=== PATIENT | male | born 1980 | race Caucasian/White ===

== ENCOUNTER 2017-01-13 10:07 | Emergency (ER) | payer MEDICARE, MEDICAID ==
[~2017-01-13] VITALS: Ht 190.5 cm; Wt 80.0 kg
[~2017-01-13 10:07] MED LIST: ALBUAER3 INH; ARIP1TAB12 PO; LURA40 PO; PARO20TA2 PO; QUET1TAB9 PO; TRAZ50TA12 PO
[2017-01-13 10:16] VITALS: BP 128/86; PULSE 85; RESP 15; TEMP 98.6; O2SAT 98
[2017-01-13 10:38] LABS: AUTOMATED NEUTROPHIL # 4.5 TH/MM3 (1.8-7.7); BASOPHIL % 0.4 % (0.0-2.0); EOSINOPHIL # 0.2 TH/MM3 (0-0.4); EOSINOPHIL % 3.3 % (0.0-4.0); HEMATOCRIT 45.1 % (39.0-51.0); HEMO FLAGS DIFF FINAL; LYMPH % 18.5 % (9.0-44.0); LYMPHOCYTE # 1.2 TH/MM3 (1.0-4.8); MEAN CELL VOLUME 88.1 FL (80.0-100.0); MONO % 7.2 % (0.0-8.0); NEUT % 70.6 % (16.0-70.0); PLATELET COUNT 245 TH/MM3 (150-450); RED BLOOD COUNT 5.12 MIL/MM3 (4.50-5.90); RED CELL DISTRIBUTION WIDTH 12.6 % (11.6-17.2); WHITE BLOOD COUNT 6.4 TH/MM3 (4.0-11.0)
[2017-01-13] MEDS ORDERED: LORazepam 1 MG TAB PO ONE (10:45)
[2017-01-13] MEDS ORDERED: LIDOCAINE VISCOUS 2% SOLN 15 ML UDC SWISH-SWAL ONE (10:45)
[2017-01-13] MEDS ORDERED: ALUMINUM/MAGNESIUM/SIMETH 30 ML CUP PO ONE (10:45)
[2017-01-13 10:54] LABS: ALT (GPT) 26 U/L (12-78); ANION GAP 8 MEQ/L (5-15); AST (GOT) 11 U/L (15-37); BICARBONATE 28.2 MEQ/L (21.0-32.0); BLOOD UREA NITROGEN 14 MG/DL (7-18); CHLORIDE 106 MEQ/L (98-107); GLOMERULAR FILTRATION RATE 77 ML/MIN (>89); SODIUM (NA) 142 MEQ/L (136-145)
[2017-01-13 10:56] LABS: ALKALINE PHOSPHATASE 69 U/L (45-117); TOTAL BILIRUBIN ADULT 1.1 MG/DL (0.2-1.0)
--- NOTE | 2017-01-13 11:54 | PD ---
HPI Chief Complaint: Psychiatric Symptoms Time Seen by Provider: 10:12 Travel History International Travel<30 days: No Contact w/Intl Traveler<30days: No Traveled to known affect area: No History of Present Illness HPI This is a 36-year-old male who has a history of schizoaffective disorder who presents to the emergency department with 1 week of sleeplessness, feeling very anxious and feeling "manic". He says his psychiatrist changed his sleeping medication on Monday and ever since then he's been having increasing trouble resting at night. He tried to take his old sleeping pill yesterday but he still didn't fall asleep. He denies any thoughts of hurting himself or others but he was worried his mental illness with adequate control and he wanted to get evaluated before that happened. PFSH Past Medical History Arthritis: No Asthma: Yes Depression: Yes Heart Rhythm Problems: No Cancer: No Cardiovascular Problems: No High Cholesterol: No Chest Pain: No Congestive Heart Failure: No COPD: Yes Cerebrovascular Accident: No Diabetes: No Diminished Hearing: No Endocrine: No GERD: No Genitourinary: No Headaches: No Hiatal Hernia: No Immune Disorder: No Kidney Stones: No Musculoskeletal: No Neurologic: No Psychiatric: Yes (DEPRESSION, SHIZOAFFECTIVE DISORDER) Reproductive: No Respiratory: Yes Migraines: No Renal Failure: No Schizophrenia: Yes (SCHIZOAFFECTIVE DISORDER) Seizures: No Sleep Apnea: No Ulcer: No Tetanus Vaccination: Unknown Past Surgical History Surgical History: No Previous Surgery Social History Alcohol Use: No Tobacco Use: No Substance Use: No (DENIES) Allergies-Medications (Allergen,Severity, Reaction): Coded Allergies: No Known Allergies (Unverified , 07/11/16) Reported Meds & Prescriptions Reported Meds & Active Scripts Active Latuda (Lurasidone) 40 Mg Tab 40 Mg PO DAILY Trazodone (Trazodone HCl) 50 Mg Tab 50 Mg PO HS PRN Quetiapine (Quetiapine Fumarate) 200 Mg Tab 200 Mg PO HS Paroxetine (Paroxetine HCl) 20 Mg Tab 20 Mg PO DAILY 14 Days Aripiprazole 10 Mg Tab 10 Mg PO DAILY 14 Days Reported Proair Hfa 8.5 GM Inh (Albuterol Sulfate) 90 Mcg/Act Aer 1 Puff INH Q4H PRN 108 mcg/actuation Review of Systems Except as stated in HPI: all other systems reviewed are Neg Physical Exam Narrative GENERAL:Well appearing, no acute distress SKIN: Focused skin assessment warm and dry. HEAD: Atraumatic. Normocephalic. EYES: Pupils equal and round. No injection or drainage. ENT: Moist mucous membranes NECK: Trachea midline. CARDIOVASCULAR: Regular rate and rhythm. No murmur appreciated. RESPIRATORY: Clear to auscultation. Breath sounds equal bilaterally. GASTROINTESTINAL: Abdomen soft, non-tender, nondistended. MUSCULOSKELETAL: No obvious deformities. NEUROLOGICAL: Awake and alert. No obvious cranial nerve deficits. Moving all extremities. PSYCHIATRIC: Slightly anxious-appearing, insight and judgment are normal, no suicidal or homicidal ideation Data Data Last Documented VS Vital Signs Date Time Temp Pulse Resp B/P Pulse Ox O2 Delivery O2 Flow Rate FiO2 01/13/17 10:16 98.6 85 15 128/86 98 Orders Complete Blood Count With Diff (01/13/17 10:22) Comprehensive Metabolic Panel (01/13/17 10:22) Alcohol (Ethanol) (01/13/17 10:22) Drug Screen, Random Urine (01/13/17 10:22) Lorazepam (Ativan) (01/13/17 10:45) Al-Mag Hy-Si 40-40-4 Mg/Ml Liq (Mag-Al P (01/13/17 10:45) Lidocaine 2% Viscous (Xylocaine 2% Visco (01/13/17 10:45) Psych Screen (01/13/17 11:50) Labs Laboratory Tests Test 01/13/17 10:30 White Blood Count 6.4 TH/MM3 Red Blood Count 5.12 MIL/MM3 Hemoglobin 15.4 GM/DL Hematocrit 45.1 % Mean Corpuscular Volume 88.1 FL Mean Corpuscular Hemoglobin 30.0 PG Mean Corpuscular Hemoglobin 34.0 % Concent Red Cell Distribution Width 12.6 % Platelet Count 245 TH/MM3 Mean Platelet Volume 8.3 FL Neutrophils (%) (Auto) 70.6 % Lymphocytes (%) (Auto) 18.5 % Monocytes (%) (Auto) 7.2 % Eosinophils (%) (Auto) 3.3 % Basophils (%) (Auto) 0.4 % Neutrophils # (Auto) 4.5 TH/MM3 Lymphocytes # (Auto) 1.2 TH/MM3 Monocytes # (Auto) 0.5 TH/MM3 Eosinophils # (Auto) 0.2 TH/MM3 Basophils # (Auto) 0.0 TH/MM3 CBC Comment DIFF FINAL Differential Comment Sodium Level 142 MEQ/L Potassium Level 4.0 MEQ/L Chloride Level 106 MEQ/L Carbon Dioxide Level 28.2 MEQ/L Anion Gap 8 MEQ/L Blood Urea Nitrogen 14 MG/DL Creatinine 1.08 MG/DL Estimat Glomerular Filtration 77 ML/MIN Rate Random Glucose 108 MG/DL Calcium Level 9.6 MG/DL Total Bilirubin 1.1 MG/DL Aspartate Amino Transf 11 U/L (AST/SGOT) Alanine Aminotransferase 26 U/L (ALT/SGPT) Alkaline Phosphatase 69 U/L Total Protein 8.1 GM/DL Albumin 4.5 GM/DL Ethyl Alcohol Level LESS THAN 3 MG/DL MDM Medical Decision Making Medical Screen Exam Complete: Yes Emergency Medical Condition: Yes Interpretation(s) Afebrile, no tachycardia, normotensive No leukocytosis Electrolytes are reassuring Alcohol negative Differential Diagnosis Schizoaffective disorder, schizophrenia, bipolar disorder, jonnie, medication side effect Narrative Course This is a 36-year-old male who presents to the emergency department with a history of schizoaffective disorder reporting increasing sleeplessness and anxiety. He is very well composed, clear, with preserved insight and judgment. He was brought in under a [place] act by police but nothing on the [place] act articulate any reason that the patient would be arm to himself or others. Patient does not express any suicidal or homicidal ideation. I don't think the [place] act is appropriate. He is here because he wants to be assessed by psychiatrist. I lifted the [place] act and the patient will be evaluated voluntarily by psychiatry. Rach Levin MD Jan 13, 2017 11:54
[2017-01-13 12:09] LABS: AMPHETAMINE, URINE NEG (NEG); BARBITURATES, URINE NEG (NEG); COCAINE, URINE NEG (NEG)
[2017-01-13] MEDS ORDERED: VALA500T PO (12:48)
[2017-01-13] MEDS ORDERED: MAGN400T24 (12:48)
--- NOTE | 2017-01-13 13:13 | PD ---
History of Present Illness Chief Complaint: Psychiatric Symptoms Time Seen by Provider: 12:55 Travel History International Travel<30 Days: No Contact w/Intl Traveler<30days: No Known affected area: No Legal Status Legal Status: Voluntary History of Present Illness: This is a 36-year-old male with a reported history of schizoaffective disorder, probably bipolar type, appearing voluntarily due to lack of sleep and manic symptoms. Patient is treated by Dr. Bhatia and was recently switched from Restoril . To Ambien. He states that he has not slept for 5 days. He is experiencing some hallucinations and paranoia but cannot tell if this is the result of the change of medicine, his lack of sleep, or his underlying schizoaffective disorder. Patient is afraid of his lack of sleep and that it will drive him into psychosis. This physician discussed with him the difficulty of changing these medicines too quickly. This physician recommends the patient take Klonopin which will assist with both sleep and jonnie. The patient is denying any suicidal or homicidal ideation, plan or intent. However , he is experiencing some paranoia and hallucinations. Therefore, the patient needs to be managed more closely. PFSH Past Medical History Arthritis: No Asthma: Yes Depression: Yes Heart Rhythm Problems: No Cancer: No Cardiovascular Problems: No High Cholesterol: No Chest Pain: No Congestive Heart Failure: No COPD: Yes Cerebrovascular Accident: No Diabetes: No Diminished Hearing: No Endocrine: No GERD: No Genitourinary: No Headaches: No Hiatal Hernia: No Immune Disorder: No Kidney Stones: No Musculoskeletal: No Neurologic: No Psychiatric: Yes (DEPRESSION, SHIZOAFFECTIVE DISORDER) Reproductive: No Respiratory: Yes Migraines: No Renal Failure: No Schizophrenia: Yes (SCHIZOAFFECTIVE DISORDER) Seizures: No Sleep Apnea: No Ulcer: No Tetanus Vaccination: Unknown Past Surgical History Surgical History: No Previous Surgery Psychiatric History Psychiatric History Hx Psychiatric Treatment: INPATIENT IN [place] IN 2004 AND 2005 FOR MULTIPLE SUICIDE ATTEMPTS; INPATIENT AT [facility] FOR 8 DAYS-D/C'D ON 07/06/16. This physician reviewed the patient's current behavior and history with his nurse. Patient is not suicidal at this time but feels if he does not get sleep and rest, his psychosis will get worse. History of Inpatient Treatment: Yes Guns or firearms in home: No Social History Hx Alcohol Use: No Hx Tobacco Use: No Hx Substance Use: No (DENIES) Hx of Substance Use Treatment: No Allergies-Medications (Allergen,Severity, Reaction): Coded Allergies: No Known Allergies (Unverified , 07/11/16) Reported Meds & Prescriptions Reported Meds & Active Scripts Active Latuda (Lurasidone) 40 Mg Tab 40 Mg PO DAILY Quetiapine (Quetiapine Fumarate) 200 Mg Tab 200 Mg PO HS Reported Magnesium (Magnesium Oxide) 400 Mg Tablet Valacyclovir (Valacyclovir HCl) 500 Mg Tab 500 Mg PO DAILY Proair Hfa 8.5 GM Inh (Albuterol Sulfate) 90 Mcg/Act Aer 1 Puff INH Q4H PRN 108 mcg/actuation Review of Systems Except as stated in HPI: all other systems reviewed are Neg Exam Alert: Yes [place]: Person, Place, Date, Situation Mood: Anxious, Calm Affect: Appropriate Speech: Clear, Logical Eye Contact: Normal Memory Intact: Immediate, Recent, Remote Hallucinations: Auditory, Visual Delusions: Yes Delusion Type: Paranoid Insight/Judgement Adequate at this time MDM Medical Decision Making Medical Record Reviewed: Yes Assessment/Plan Although the patient is experiencing both auditory and visual hallucinations with resultant paranoia, his insight is adequate to know that these are either a side effect of changing medicines or the lack of sleep. He is trying to keep his schizoaffective disorder history under control and therefore would like to change his sedative hypnotic type medicine. His cognition is intact and he is able to give informed consent for the change to Klonopin. Klonopin will remove some of the benzodiazepine withdrawal that he is experiencing, help him with sleep and reduce manic symptoms. Patient was told to return to his psychiatrist , Dr. Garcia, for follow up. However if his underlying schizoaffective disorder were to get worse, he is to come back to the emergency department for likely admission. Orders Complete Blood Count With Diff (01/13/17 10:22) Comprehensive Metabolic Panel (01/13/17 10:22) Alcohol (Ethanol) (01/13/17 10:22) Drug Screen, Random Urine (01/13/17 10:22) Lorazepam (Ativan) (01/13/17 10:45) Al-Mag Hy-Si 40-40-4 Mg/Ml Liq (Mag-Al P (01/13/17 10:45) Lidocaine 2% Viscous (Xylocaine 2% Visco (01/13/17 10:45) Psych Screen (01/13/17 11:50) Diet Regular Basic (01/13/17 Lunch) Results Vital Signs Date Time Temp Pulse Resp B/P Pulse Ox O2 Delivery O2 Flow Rate FiO2 01/13/17 10:16 98.6 85 15 128/86 98 Laboratory Tests Test 01/13/17 01/13/17 10:30 11:50 White Blood Count 6.4 Red Blood Count 5.12 Hemoglobin 15.4 Hematocrit 45.1 Mean Corpuscular Volume 88.1 Mean Corpuscular Hemoglobin 30.0 Mean Corpuscular Hemoglobin 34.0 Concent Red Cell Distribution Width 12.6 Platelet Count 245 Mean Platelet Volume 8.3 Neutrophils (%) (Auto) 70.6 Lymphocytes (%) (Auto) 18.5 Monocytes (%) (Auto) 7.2 Eosinophils (%) (Auto) 3.3 Basophils (%) (Auto) 0.4 Neutrophils # (Auto) 4.5 Lymphocytes # (Auto) 1.2 Monocytes # (Auto) 0.5 Eosinophils # (Auto) 0.2 Basophils # (Auto) 0.0 CBC Comment DIFF FINAL Differential Comment Sodium Level 142 Potassium Level 4.0 Chloride Level 106 Carbon Dioxide Level 28.2 Anion Gap 8 Blood Urea Nitrogen 14 Creatinine 1.08 Estimat Glomerular Filtration 77 Rate Random Glucose 108 Calcium Level 9.6 Total Bilirubin 1.1 Aspartate Amino Transf 11 (AST/SGOT) Alanine Aminotransferase 26 (ALT/SGPT) Alkaline Phosphatase 69 Total Protein 8.1 Albumin 4.5 Ethyl Alcohol Level LESS THAN 3 Urine Opiates Screen NEG Urine Barbiturates Screen NEG Urine Amphetamines Screen NEG Urine Benzodiazepines Screen NEG Urine Cocaine Screen NEG Urine Cannabinoids Screen NEG Diagnosis Primary Impression: Schizoaffective disorder, bipolar type Additional Impression: Benzodiazepine dependence Problem Qualifiers Truman Michel MD Jan 13, 2017 13:13
[2017-01-13] MEDS ORDERED: CLON1 PO (13:19)
== END 2017-01-13 14:05 | disposition home or self-care (01) ==
LOC: NEPD 10:07
DX: F25.0 Schizoaffective disorder, bipolar type (principal); F13.20 Sedative, hypnotic or anxiolytic dependence, uncomplicated; Z86.59 Personal history of other mental and behavioral disorders; Z87.09 Personal history of other diseases of the respiratory system
CPT/HCPCS: 80053; 80307; 84443; 85025; 99284

== ENCOUNTER → 2017-01-27 | Outpatient (CLI) | payer MEDICARE, MEDICAID ==
[~2017-01-27] MED LIST changes: +ARIP1TAB11 PO; -ARIP1TAB12 PO; +CLON1 PO; +MAGN400T24 PO; -PARO20TA2 PO; +PROP10TA6 PO; -TRAZ50TA12 PO; +VALA500T PO; +ZOLO25TA PO
[2017-01-27 19:09] LABS: BLOOD, URINE NEG (NEG); GLUCOSE,URINE NEG (NEG); KETONE, URINE NEG (NEG); NITRITE,URINE NEG (NEG); PH, URINE 6.5 (5.0-8.5); URINE COLOR YELLOW (YELLW/STRAW)
[2017-01-27 19:19] LABS: AUTOMATED NEUTROPHIL # 3.6 TH/MM3 (1.8-7.7); BASOPHIL % 0.7 % (0.0-2.0); EOSINOPHIL # 0.5 TH/MM3 (0-0.4); EOSINOPHIL % 8.6 % (0.0-4.0); HEMATOCRIT 42.2 % (39.0-51.0); HEMO FLAGS DIFF FINAL; LYMPH % 22.9 % (9.0-44.0); LYMPHOCYTE # 1.4 TH/MM3 (1.0-4.8); MEAN CELL VOLUME 88.3 FL (80.0-100.0); MEAN CORPUSCULAR HEMOGLOBIN 30.4 PG (27.0-34.0); MEAN CORPUSCULAR HGB CONC 34.4 % (32.0-36.0); NEUT % 59.8 % (16.0-70.0); PLATELET COUNT 219 TH/MM3 (150-450); RED BLOOD COUNT 4.78 MIL/MM3 (4.50-5.90); RED CELL DISTRIBUTION WIDTH 12.7 % (11.6-17.2); WHITE BLOOD COUNT 6.1 TH/MM3 (4.0-11.0)
[2017-01-27 20:01] LABS: ANION GAP 7 MEQ/L (5-15); AST (GOT) 11 U/L (15-37); BICARBONATE 27.8 MEQ/L (21.0-32.0); BLOOD UREA NITROGEN 15 MG/DL (7-18); CHLORIDE 101 MEQ/L (98-107); GLOMERULAR FILTRATION RATE 89 ML/MIN (>89); POTASSIUM 4.3 MEQ/L (3.5-5.1); SODIUM (NA) 136 MEQ/L (136-145)
[2017-01-27 20:02] LABS: ALT (GPT) 23 U/L (12-78)
[2017-01-27 20:10] LABS: ALKALINE PHOSPHATASE 59 U/L (45-117); FREE T4 1.12 NG/DL (0.76-1.46); HDL CHOLESTEROL 48.7 MG/DL (40.0-60.0); LDL CHOLESTEROL 83 MG/DL (0-99); TOTAL BILIRUBIN ADULT 0.9 MG/DL (0.2-1.0)
== END ==
LOC: HLAB 18:06
PROVIDERS: ATTEND Family Medicine
DX: J02.9 Acute pharyngitis, unspecified (principal); B00.9 Herpesviral infection, unspecified; J20.9 Acute bronchitis, unspecified; F41.9 Anxiety disorder, unspecified; F31.9 Bipolar disorder, unspecified; E55.9 Vitamin D deficiency, unspecified; R82.90 Unspecified abnormal findings in urine
CPT/HCPCS: 80053; 80061; 81001; 82306; 83735; 84439; 84443; 85025; 87086

== ENCOUNTER 2017-02-10 11:51 | Inpatient (IN) | payer OTHER, MEDICAID, MEDICARE ==
[~2017-02-10] VITALS: Ht 190.5 cm; Wt 81.6 kg
[~2017-02-10 11:51] MED LIST changes: -ARIP1TAB11 PO; -PROP10TA6 PO; -ZOLO25TA PO
[2017-02-10 11:52] VITALS: BP 134/78; PULSE 86; RESP 15; TEMP 98.1; O2SAT 99
--- NOTE | 2017-02-10 12:06 | PD ---
HPI . Anxiety, auditory hallucinations and physical hallucinations Chief Complaint: Psychiatric Symptoms Time Seen by Provider: 12:06 Travel History International Travel<30 days: No Contact w/Intl Traveler<30days: No Traveled to known affect area: No History of Present Illness HPI 36-year-old male with history of bipolar disorder, its affective disorder and generalized anxiety disorder here with complaints of worsening anxiety over the past 3 months. Patient tells me that he's been having daily panic attacks lasting about 3 hours and they're interfering with his life. Patient states that he feels a visible force in his home that is pulling him around his apartment additionally he reports that he hears his own voice. He tells me at times when he is overwhelmed with anxiety and experiences this pulling force, it feels as though it would leave him towards the balcony to jump. In attempts to prevent this, patient has been using chairs to block his balcony door. He does follow with Dr. Post on an outpatient basis and was recently prescribed Klonopin, which does not seem to be helping. Additionally patient reports a 45 pound weight loss in the past 3 months. I reviewed the records and in June 2016, his weight was recorded at 93.2 kg, now it is 80 kg. Patient has visited an urgent care and seems to be following with that provider as he recently had labs done. I have reviewed them in the computer and he does not have any gross or for abnormalities. His thyroid has been checked on multiple occasions and is within normal limits. He does not have a primary care doctor due to some issues with his insurance. He denies any suicide or homicide ideation. PFSH Past Medical History Arthritis: No Asthma: Yes Depression: Yes Heart Rhythm Problems: No Cancer: No Cardiovascular Problems: No High Cholesterol: No Chest Pain: No Congestive Heart Failure: No COPD: Yes Cerebrovascular Accident: No Diabetes: No Diminished Hearing: No Endocrine: No GERD: No Genitourinary: No Headaches: No Hiatal Hernia: No Immune Disorder: No Kidney Stones: No Musculoskeletal: No Neurologic: No Psychiatric: Yes (DEPRESSION, SHIZOAFFECTIVE DISORDER) Reproductive: No Respiratory: Yes (ASTHMA) Migraines: No Renal Failure: No Schizophrenia: Yes (SCHIZOAFFECTIVE DISORDER) Seizures: No Sleep Apnea: No Ulcer: No Social History Alcohol Use: No Tobacco Use: No Substance Use: No (DENIES) Allergies-Medications (Allergen,Severity, Reaction): Coded Allergies: No Known Allergies (Unverified , 02/10/17) Reported Meds & Prescriptions Reported Meds & Active Scripts Active Klonopin (Clonazepam) 1 Mg Tab 1 Mg PO HS Latuda (Lurasidone) 40 Mg Tab 40 Mg PO DAILY Quetiapine (Quetiapine Fumarate) 200 Mg Tab 200 Mg PO HS Reported Magnesium (Magnesium Oxide) 400 Mg Tablet 1 Tab PO DAILY Valacyclovir (Valacyclovir HCl) 500 Mg Tab 500 Mg PO DAILY Proair Hfa 8.5 GM Inh (Albuterol Sulfate) 90 Mcg/Act Aer 1 Puff INH Q4H PRN 108 mcg/actuation Review of Systems General / Constitutional: No: Fever Eyes: No: Visual changes HENT: No: Headaches Cardiovascular: No: Chest Pain or Discomfort Respiratory: No: Shortness of Breath Gastrointestinal: No: Abdominal Pain Genitourinary: No: Dysuria Musculoskeletal: No: Pain Skin: No Rash Neurologic: No: Weakness Psychiatric: No: Depression Endocrine: No: Polydipsia Hematologic/Lymphatic: No: Easy Bruising Physical Exam Narrative GENERAL: AAO x 3, no acute distress, Well-nourished, well-developed patient. SKIN: Warm and dry. No visible rashes or bruising. HEAD: Normocephalic and atraumatic. EYES: No scleral icterus. No injection or drainage. EOM intact, PERRLA ENT: No nasal drainage noted. Mucous membranes pink. Airway patent. NECK: Supple, trachea midline. No JVD. CARDIOVASCULAR: Regular rate and rhythm without murmurs, gallops, or rubs. RESPIRATORY: Breath sounds equal bilaterally. No accessory muscle use. No rhonchi or rales. GASTROINTESTINAL: Abdomen soft, non-tender, nondistended. EXTREMITIES: No cyanosis or edema. BACK: No obvious deformity. NEURO: CN II-12 intact, fructose loader strength normal b/l, UE and LE 5/5, no focal deficits PSYCH: AAO x 3, normal affect. Data Data Last Documented VS Vital Signs Date Time Temp Pulse Resp B/P Pulse Ox O2 Delivery O2 Flow Rate FiO2 02/10/17 11:52 98.1 86 15 134/78 99 Orders Complete Blood Count With Diff (02/10/17 12:15) Comprehensive Metabolic Panel (02/10/17 12:15) Psych Screen (02/10/17 12:15) Drug Screen, Random Urine (02/10/17 12:15) Alcohol (Ethanol) (02/10/17 12:15) Labs Laboratory Tests Test 02/10/17 02/10/17 12:20 12:35 White Blood Count 5.1 TH/MM3 Red Blood Count 4.44 MIL/MM3 Hemoglobin 13.5 GM/DL Hematocrit 39.9 % Mean Corpuscular Volume 89.8 FL Mean Corpuscular Hemoglobin 30.3 PG Mean Corpuscular Hemoglobin 33.7 % Concent Red Cell Distribution Width 12.7 % Platelet Count 207 TH/MM3 Mean Platelet Volume 8.1 FL Neutrophils (%) (Auto) 60.9 % Lymphocytes (%) (Auto) 21.0 % Monocytes (%) (Auto) 8.6 % Eosinophils (%) (Auto) 8.7 % Basophils (%) (Auto) 0.8 % Neutrophils # (Auto) 3.1 TH/MM3 Lymphocytes # (Auto) 1.1 TH/MM3 Monocytes # (Auto) 0.4 TH/MM3 Eosinophils # (Auto) 0.4 TH/MM3 Basophils # (Auto) 0.0 TH/MM3 CBC Comment DIFF FINAL Differential Comment Sodium Level 141 MEQ/L Potassium Level 4.3 MEQ/L Chloride Level 106 MEQ/L Carbon Dioxide Level 28.0 MEQ/L Anion Gap 7 MEQ/L Blood Urea Nitrogen 15 MG/DL Creatinine 0.92 MG/DL Estimat Glomerular Filtration 93 ML/MIN Rate Random Glucose 81 MG/DL Calcium Level 8.9 MG/DL Total Bilirubin 0.5 MG/DL Aspartate Amino Transf 13 U/L (AST/SGOT) Alanine Aminotransferase 22 U/L (ALT/SGPT) Alkaline Phosphatase 57 U/L Total Protein 6.8 GM/DL Albumin 3.6 GM/DL Ethyl Alcohol Level LESS THAN 3 MG/DL Urine Opiates Screen NEG Urine Barbiturates Screen NEG Urine Amphetamines Screen NEG Urine Benzodiazepines Screen NEG Urine Cocaine Screen NEG Urine Cannabinoids Screen NEG MDM Medical Decision Making Medical Screen Exam Complete: Yes Emergency Medical Condition: Yes Medical Record Reviewed: Yes Differential Diagnosis Generalized anxiety disorder, schizophrenia, schizoaffective disorder, drug- induced mood disorder, thyroid disorder Narrative Course 36-year-old male here with complaints of worsening anxiety, auditory and physical hallucinations as well as weight loss. Labs have been ordered. If they are within normal limits, patient will be medically cleared for a psych screen. Laboratory Tests Test 02/10/17 02/10/17 12:20 12:35 White Blood Count 5.1 TH/MM3 Red Blood Count 4.44 MIL/MM3 Hemoglobin 13.5 GM/DL Hematocrit 39.9 % Mean Corpuscular Volume 89.8 FL Mean Corpuscular Hemoglobin 30.3 PG Mean Corpuscular Hemoglobin 33.7 % Concent Red Cell Distribution Width 12.7 % Platelet Count 207 TH/MM3 Mean Platelet Volume 8.1 FL Neutrophils (%) (Auto) 60.9 % Lymphocytes (%) (Auto) 21.0 % Monocytes (%) (Auto) 8.6 % Eosinophils (%) (Auto) 8.7 % Basophils (%) (Auto) 0.8 % Neutrophils # (Auto) 3.1 TH/MM3 Lymphocytes # (Auto) 1.1 TH/MM3 Monocytes # (Auto) 0.4 TH/MM3 Eosinophils # (Auto) 0.4 TH/MM3 Basophils # (Auto) 0.0 TH/MM3 CBC Comment DIFF FINAL Differential Comment Sodium Level 141 MEQ/L Potassium Level 4.3 MEQ/L Chloride Level 106 MEQ/L Carbon Dioxide Level 28.0 MEQ/L Anion Gap 7 MEQ/L Blood Urea Nitrogen 15 MG/DL Creatinine 0.92 MG/DL Estimat Glomerular Filtration 93 ML/MIN Rate Random Glucose 81 MG/DL Calcium Level 8.9 MG/DL Total Bilirubin 0.5 MG/DL Aspartate Amino Transf 13 U/L (AST/SGOT) Alanine Aminotransferase 22 U/L (ALT/SGPT) Alkaline Phosphatase 57 U/L Total Protein 6.8 GM/DL Albumin 3.6 GM/DL Ethyl Alcohol Level LESS THAN 3 MG/DL Urine Opiates Screen NEG Urine Barbiturates Screen NEG Urine Amphetamines Screen NEG Urine Benzodiazepines Screen NEG Urine Cocaine Screen NEG Urine Cannabinoids Screen NEG Labs have been reviewed. Patient is medically clear for psych screen. In regards to his weight loss, I recommend outpatient workup. There are no gross abn with his labs. This could be related to his psychiatric issues. Diagnosis Primary Impression: Anxiety Condition: Stable [place] Feb 10, 2017 12:06
[2017-02-10 12:58] LABS: AUTOMATED NEUTROPHIL # 3.1 TH/MM3 (1.8-7.7); BASOPHIL % 0.8 % (0.0-2.0); EOSINOPHIL # 0.4 TH/MM3 (0-0.4); EOSINOPHIL % 8.7 % (0.0-4.0); HEMATOCRIT 39.9 % (39.0-51.0); HEMO FLAGS DIFF FINAL; LYMPHOCYTE # 1.1 TH/MM3 (1.0-4.8); MEAN CELL VOLUME 89.8 FL (80.0-100.0); MEAN CORPUSCULAR HEMOGLOBIN 30.3 PG (27.0-34.0); MEAN CORPUSCULAR HGB CONC 33.7 % (32.0-36.0); MONO % 8.6 % (0.0-8.0); NEUT % 60.9 % (16.0-70.0); PLATELET COUNT 207 TH/MM3 (150-450); RED BLOOD COUNT 4.44 MIL/MM3 (4.50-5.90); RED CELL DISTRIBUTION WIDTH 12.7 % (11.6-17.2); WHITE BLOOD COUNT 5.1 TH/MM3 (4.0-11.0)
[2017-02-10 13:05] LABS: AMPHETAMINE, URINE NEG (NEG); BARBITURATES, URINE NEG (NEG); COCAINE, URINE NEG (NEG)
[2017-02-10 13:19] LABS: ALT (GPT) 22 U/L (12-78); ANION GAP 7 MEQ/L (5-15); AST (GOT) 13 U/L (15-37); BLOOD UREA NITROGEN 15 MG/DL (7-18); CHLORIDE 106 MEQ/L (98-107); GLOMERULAR FILTRATION RATE 93 ML/MIN (>89); POTASSIUM 4.3 MEQ/L (3.5-5.1); SODIUM (NA) 141 MEQ/L (136-145)
[2017-02-10 13:22] LABS: ALKALINE PHOSPHATASE 57 U/L (45-117); TOTAL BILIRUBIN ADULT 0.5 MG/DL (0.2-1.0)
[2017-02-10 18:42] VITALS: BP 116/70; PULSE 74; RESP 18; TEMP 98.7; O2SAT 98
[2017-02-10] MEDS ORDERED: MAGNESIUM HYDROXIDE SUSP 30 ML CUP PO PRN (18:45)
[2017-02-10] MEDS ORDERED: LORazepam 2 MG/ML VIAL IM PRN (18:45)
[2017-02-10] MEDS ORDERED: ALUMINUM/MAGNESIUM/SIMETH 30 ML CUP PO PRN (18:45)
[2017-02-10] MEDS: LORazepam 1 MG TAB PO PRN (22:30)
[2017-02-11 05:28] VITALS: BP 118/71; PULSE 72; RESP 16; TEMP 98; O2SAT 98
[2017-02-11] MEDS: LURASIDONE 40 MG TAB PO SCH (09:30)
[2017-02-11] MEDS: PROPRANOLOL HCL 10 MG TAB PO SCH ×3 (09:30→21:02)
--- NOTE | 2017-02-11 12:19 | HHI.HP ---
Provisional Diagnosis Admission Date Feb 10, 2017 at 16:52 [place] I. Schizoaffective disorder, bipolar type, PTSD [place] II. Deferred [place] III. Akathisia [place] IV. Multiple psychiatric hospitalizations [place] V. 45 Certification of Person's Competence To Provide Express and Informed Consent I have personally examined Richard Dyer , a person being served at [facility] on, Feb 11, 2017 12:02. Express and informed consent means consent voluntarily given in writing, by a competent person, after sufficient explanation and disclosure of the subject matter involved to enable the person to make a knowing and willful decision without any element of force, fraud, deceit, duress, or other form of constraint or coercion. This person is 18 years of age or older, is not now known to be incompetent to consent to treatment with a guardian advocate, and does not have a health care surrogate or proxy currently making medical treatment decisions. I have found this person to be one of the following: [X] Competent to provide express and informed consent, as defined above, for voluntary admission to this facility and is competent to provide express and informed consent for treatment. He/she has the consistent capacity to make well reasoned, willful, and knowing decisions concerning his or her medical or mental health treatment. The person fully and consistently understands the purpose of the admission for examination/placement and is fully capable of personally exercising all rights assured under [place] Incompetent to provide express and informed consent to voluntary admission, and this is incompetent to provide express and informed consent to treatment. The person must be transferred to involuntary status and a petition for a guardian advocate filed with the Circuit Court. [] Refusing to provide express and informed consent to voluntary admission but is competent to provide express and informed consent for treatment. The person must be discharged or transferred to involuntary status. Form shall be completed within 24 hours of a person's arrival at the receiving facility and filed in the clinical record of each person: 1. Admitted on a voluntary basis 2. Permitted to provide express and informed consent to his/her own treatment 3. Allowed to transfer from involuntary to voluntary status 4. Prior to permitting a person to consent to his or her own treatment after having been previously found incompetent to consent to treatment. 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 Pinzon, but he was seen in the ER by Dr. Michel in January 12, documentation were reviewed, patient also have multiple suicidal attempts, active outpatient care with Dr. Post, he is on Latuda 40 mg, Seroquel 200 mg, clonazepam 1 mg at bedtime, who came to the ER with complaints of worsening anxiety over the past 3 months. As per ER notes Patient tells me that he's been having daily panic attacks lasting about 3 hours and they're interfering with his life. Patient states that he feels a visible force in his home that is pulling him around his apartment additionally he reports that he hears his own voice. He tells me at times when he is overwhelmed with anxiety and experiences this pulling force, it feels as though it would leave him towards the balcony to jump. In attempts to prevent this, patient has been using chairs to block his balcony door. He does follow with Dr. Post on an outpatient basis and was recently prescribed Klonopin, which does not seem to be helping. Additionally patient reports a 45 pound weight loss in the past 3 months. I reviewed the records and in June 2016, his weight was recorded at 93.2 kg, now it is 80 kg. Patient has visited an urgent care and seems to be following with that provider as he recently had labs done. I have reviewed them in the computer and he does not have any gross or for abnormalities. On psychiatric evaluation today patient is calm, cooperative, very pleasant. Patient explains that he has been dealing with increased anxiety, but he doesn' t know how to describe it. He says that he has been functional and doing okay at school. He has been taking his medication as prescribed and going to outpatient psychiatric visit. He has been enjoying life, sleeping okay, with good level of energy, but having some difficulty with appetite, weight loss and he says that he is unable to stay still. He says that when he is in his apartment he needs to be walking and he has intrusive thoughts of going to the balcony and jumping. He had to put a chair behind his back on his door " because I am afraid that this thoughts can become a reality". He denies depression, he denies suicidal ideation, he denies homicidal ideation, he denies visual and auditory hallucinations. During this evaluation, no racing thoughts, no loosening of associations, no pressured speech, no paranoia, no agitation, no aggressive behavior, are present. Patient is fully oriented 3, he denies the use of alcohol and drugs. Review of Systems Constitutional: COMPLAINS OF: Weight loss, DENIES: Diaphoretic episodes, Fatigue, Fever, Weight gain, Chills, Dizziness, Change in appetite, Night Sweats Endocrine: DENIES: Heat/cold intolerance, Polydipsia, Polyuria, Polyphagia Eyes: DENIES: Blurred vision, Diplopia, Eye inflammation, Eye pain, Vision loss , Photosensitivity, Double Vision Ears, nose, mouth, throat: DENIES: Tinnitus, Hearing loss, Vertigo, Nasal discharge, Oral lesions, Throat pain, Hoarseness, Ear Pain, Running Nose, Epistaxis, Sinus Pain, Toothache, Odynophagia Respiratory: DENIES: Apneas, Cough, Snoring, Wheezing, Hemoptysis, Sputum production, Shortness of breath Cardiovascular: DENIES: Chest pain, Palpitations, Syncope, Dyspnea on Exertion , PND, Lower Extremity Edema, Orthopnea, Claudication Gastrointestinal: DENIES: Abdominal pain, Black stools, Bloody stools, Constipation, Diarrhea, Nausea, Vomiting, Difficulty Swallowing, Anorexia Musculoskeletal: DENIES: Joint pain, Muscle aches, Stiffness, Joint Swelling, Back pain, Neck pain Integumentary: DENIES: Abnormal pigmentation, Nail changes, Pruritus, Rash Hematologic/lymphatic: DENIES: Bruising, Lymphadenopathy Immunologic/allergic: DENIES: Eczema, Urticaria Neurologic: DENIES: Abnormal gait, Headache, Localized weakness, Paresthesias, Seizures, Speech Problems, Tremor, Poor Balance Psychiatric: COMPLAINS OF: Anxiety, DENIES: Confusion, Mood changes, Depression, Hallucinations, Agitation, Suicidal Ideation, Homicidal Ideation, Delusions Substance Abuse History Drugs/Alcohol past 12 months He denies the use of alcohol and drugs Past Family Social History Coded Allergies: No Known Allergies (Unverified , 02/10/17) Active Scripts Clonazepam (Klonopin)1 Mg Tab1 Mg PO HS #30 TAB Ref 0 Prov:Truman Michel MD 01/13/17 Lurasidone (Latuda)40 Mg Tab40 Mg PO DAILY #30 TAB Prov:Raquel Helm MD 07/19/16 Quetiapine 200 Mg [id number] Mg PO HS #30 TAB Prov:Raquel Helm MD 07/19/16 Reported Medications Magnesium Oxide (Magnesium)400 Mg Tablet1 Tab PO DAILY 01/13/17 Valacyclovir 500 Mg [id number] Mg PO DAILY #30 TAB Ref 0 01/13/17 Albuterol 8.5 GM Inh (Proair Hfa 8.5 GM Inh)90 Mcg/Act Aer1 Puff INH Q4H PRN ( SHORTNESS OF BREATH) #1 INHALER Ref 0 108 mcg/actuation 06/07/16 Current Medications Medications (Trade) Dose Ordered Sig/Pritesh Route Start Time Stop Time Status Last Admin (Ativan) 1 mg Q6H PRN PO 02/10/17 18:45 02/10/17 22:30 (Ativan Inj) 1 mg Q6H PRN IM 02/10/17 18:45 (Tylenol) 650 mg Q4H PRN PO 02/10/17 18:45 (Milk Of Magnesia Liq) 30 ml DAILY PRN PO 02/10/17 18:45 (Mag-Al Plus Susp Liq) 30 ml Q6H PRN PO 02/10/17 18:45 (Inderal) 10 mg Q8HR PO 02/11/17 08:30 02/11/17 09:30 (KlonoPIN) 1 mg HS PO 02/11/17 21:00 (Latuda) 40 mg DAILY PO 02/11/17 09:00 02/11/17 09:30 (SEROquel) 200 mg HS PO 02/11/17 21:00 Family History Patient denies family psychiatric history Social History Patient was born and raised in [place], he lives alone here in [facility], 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 2) University her student, family support Physical Exam On physical exam the patient does not present any tremors, he doesn't present any psychomotor retardation or agitation, he said little bit restless, but no prominent EPS noted Vital Signs Vital Signs Date Time Temp Pulse Resp B/P Pulse Ox O2 Delivery O2 Flow Rate FiO2 02/11/17 05:28 98.0 72 16 118/71 98 Lab Results Labs Laboratory Tests Test 02/10/17 02/10/17 12:20 12:35 White Blood Count 5.1 TH/MM3 Red Blood Count 4.44 MIL/MM3 Hemoglobin 13.5 GM/DL Hematocrit 39.9 % Mean Corpuscular Volume 89.8 FL Mean Corpuscular Hemoglobin 30.3 PG Mean Corpuscular Hemoglobin 33.7 % Concent Red Cell Distribution Width 12.7 % Platelet Count 207 TH/MM3 Mean Platelet Volume 8.1 FL Neutrophils (%) (Auto) 60.9 % Lymphocytes (%) (Auto) 21.0 % Monocytes (%) (Auto) 8.6 % Eosinophils (%) (Auto) 8.7 % Basophils (%) (Auto) 0.8 % Neutrophils # (Auto) 3.1 TH/MM3 Lymphocytes # (Auto) 1.1 TH/MM3 Monocytes # (Auto) 0.4 TH/MM3 Eosinophils # (Auto) 0.4 TH/MM3 Basophils # (Auto) 0.0 TH/MM3 CBC Comment DIFF FINAL Differential Comment Sodium Level 141 MEQ/L Potassium Level 4.3 MEQ/L Chloride Level 106 MEQ/L Carbon Dioxide Level 28.0 MEQ/L Anion Gap 7 MEQ/L Blood Urea Nitrogen 15 MG/DL Creatinine 0.92 MG/DL Estimat Glomerular Filtration 93 ML/MIN Rate Random Glucose 81 MG/DL Calcium Level 8.9 MG/DL Total Bilirubin 0.5 MG/DL Aspartate Amino Transf 13 U/L (AST/SGOT) Alanine Aminotransferase 22 U/L (ALT/SGPT) Alkaline Phosphatase 57 U/L Total Protein 6.8 GM/DL Albumin 3.6 GM/DL Ethyl Alcohol Level LESS THAN 3 MG/DL Urine Opiates Screen NEG Urine Barbiturates Screen NEG Urine Amphetamines Screen NEG Urine Benzodiazepines Screen NEG Urine Cocaine Screen NEG Urine Cannabinoids Screen NEG Mental Status Examination Appearance man, age appearing, good hygiene, [facility], calm, cooperative and pleasant Speech: Unremarkable Orientation: x3 Memory: Unremarkable Thought Process: Logical Thought Content: Unremarkable Language Fluent and is spontaneous Fund of Knowledge Adequate for his level of education Hallucination Type: None Attention and Concentration: Good Suicidal Ideation: No Previous Suicide Attempts: Yes Homicidal Ideation: No Previous Homicide Attempts: No Insight: Good Judgment: WNL Affect: Good Mood: Appropriate Motor Activity: Normal gait Assessment & Plan Problem List: (1) Schizoaffective disorder, bipolar type Assessment & Plan: On psychiatric evaluation the patient reports increased anxiety in the last 3 months, he describes his anxiety as an inner sensation of stillness, a constant need of movement, intrusive thoughts of jumping of his Balcon[place]. Patient also reports a significant weight loss in the last 3 months. Patient denies depressive symptoms, he denies suicidal and homicidal ideation, he denies visual and auditory hallucinations. No rose marie symptoms of jonnie or psychosis present at this moment. Patient reports for compliant with Seroquel 200 mg at bedtime, Latuda 40 mg daily, clonazepam 1 mg at bedtime prescribed by Dr. Post. In my opinion patient might be having aKathisia as a side effects of antipsychotics, but primary anxiety is also possible. Patient will stay voluntarily in the hospital for longitudinal observation, to initiate propranolol 10 mg 3 times a day and to increase clonazepam to 1 mg twice a day. Extensive psychoeducation, support provided. ICD Code: F25.0 (2) Akathisia Assessment & Plan: Will increase clonazepam to 1 mg twice a day Will add propranolol 10 mg twice a day Patient was recommended to discuss with outpatient psychiatrist the possibility to switching antipsychotics or decreasing current doses. ICD Code: G25.71 Assessment & Plan Estimated LOS: Luis Engle MD Feb 11, 2017 12:19
[2017-02-11 18:00] VITALS: BP 110/77; PULSE 80; RESP 16; TEMP 96.8; O2SAT 96
[2017-02-11] MEDS ORDERED: QUEtiapine FUMARATE 200 MG TAB PO SCH (21:00)
[2017-02-11] MEDS: clonazePAM 1 MG TAB PO SCH (21:02)
[2017-02-12 05:28] VITALS: BP 96/63; PULSE 60; RESP 17; TEMP 96.6; O2SAT 97
[2017-02-12] MEDS: PROPRANOLOL HCL 10 MG TAB PO SCH ×4 (05:47→21:56)
[2017-02-12 08:26] VITALS: BP 105/61; PULSE 68
[2017-02-12] MEDS: LURASIDONE 40 MG TAB PO SCH (08:29)
[2017-02-12 13:03] VITALS: BP 110/58; PULSE 81
--- NOTE | 2017-02-12 14:22 | HHI.PYPN ---
Subjective Remarks Patient was seen and case discussed with nursing. Patient is withdrawn and seclusive. Shy, quiet affect. Per nursing patient had an episode of skipping down the hallway yesterday. During this interview there is no noted akathisia and patient denies a sensation to always want to move. No dystonia or TD. Patient says he feels anxious but has not had any panic attacks. No longer has intrusive thoughts to jump off a bridge. He says that was partly reaction to his akathisia. Says his chief complaint is fatigue in the does appear tire. Patient believes this is from the Seroquel 200mg dose. His Inderal has been held all day because of lower range blood pressures Objective Alert: Yes [place]: Person, Place, Date, Situation Mood: Anxious Affect: Other (shy) Memory Intact: Immediate (grossly intact) Hallucinations: Auditory (denies) Delusions: No Delusion Type: Other (none elicited) Suicidal: Intent (denies), Plan (denies), Ideation (denies) Homicidal: Ideation (denies) Insight/Judgment Fair Vitals/IOs Vital Signs Date Time Temp Pulse Resp B/P Pulse Ox O2 Delivery O2 Flow Rate FiO2 02/12/17 13:03 81 110/58 02/12/17 05:28 96.6 17 97 Assessment & Plan Problem List: (1) Schizoaffective disorder, bipolar type ICD Code: F25.0 (2) Akathisia ICD Code: G25.71 Assessment & Plan Lower Seroquel to 100 mg daily at bedtime secondary to fatigue and low blood pressure. What pressure Parameters also added to the Inderal. Consider optimizing with one antipsychotic next week. Vitals every 6 hours Justification for Cont. Inpt. Patient will decompensate in a less restrictive setting Carlos Bennett DO Feb 12, 2017 14:22
[2017-02-12] MEDS: ACETAMINOPHEN 325 MG TAB PO PRN (15:34)
[2017-02-12 18:00] VITALS: BP 119/70; PULSE 69; RESP 18; TEMP 97.7; O2SAT 98
[2017-02-12] MEDS ORDERED: QUEtiapine FUMARATE 100 MG TAB PO SCH (21:00)
[2017-02-12 21:13] VITALS: BP 119/76; PULSE 69
[2017-02-12] MEDS: clonazePAM 1 MG TAB PO SCH (21:21)
[2017-02-13 05:12] VITALS: BP 120/64; PULSE 74; RESP 16; TEMP 98; O2SAT 98
[2017-02-13] MEDS: PROPRANOLOL HCL 10 MG TAB PO SCH ×2 (05:46→21:00)
[2017-02-13] MEDS: ACETAMINOPHEN 325 MG TAB PO PRN ×2 (07:59→22:57)
[2017-02-13] MEDS: LURASIDONE 40 MG TAB PO SCH (07:59)
--- NOTE | 2017-02-13 13:22 | HHI.PYPN ---
Subjective Remarks Patient seen by me for first time with nurse Mane and Counselor Mariza, chart review, patient compliant medications. While at this time patient is denying suicidality he also describes anxiety, vague auditory hallucinations, and a long history mental illness. It appears he had his first break in his early 20s did spend 9 months in the [facility] in [place] in his early 20s. He states she's been on multiple medications with very little success in the long run with keeping the voices away with anxiety of the depression. He also gives some criteria for manic episodes. Also appears she's had some psychotic episodes not in association with a mood disorder. Patient did sign an ROr, however the to talking with him about medication management and adjustments is willing to rescind the Ror. We will discontinue the Klonopin discontinue the Seroquel, discontinue the Latuda. We will decrease the Inderal to 10 mg twice a day. We will add Zoloft 25 mg daily and Abilify 5 mg twice a day. 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 He does have a community psychiatrist, Dr. Post. We have agreed to the following medication changes as above. We will observe the patient for 2 days today and tomorrow for any medication problems. If he tolerates the medication okay will discharge him on Monday, to return to class. He then will follow- up with Dr. Post on Monday. Review of Systems Except as stated in HPI: all other systems reviewed are Neg Objective Alert: Yes [place]: Person, Place, Date, Situation Mood: Anxious Affect: Other (shy) Memory Intact: Immediate (grossly intact) Hallucinations: Auditory (denies) Delusions: No Delusion Type: Other (none elicited) Suicidal: Intent (denies), Plan (denies), Ideation (denies) Homicidal: Ideation (denies) Insight/Judgment Poor to fair Vitals/IOs Vital Signs Date Time Temp Pulse Resp B/P Pulse Ox O2 Delivery O2 Flow Rate FiO2 02/13/17 05:12 98.0 74 16 120/64 98 Assessment & Plan Problem List: (1) Schizoaffective disorder, bipolar type ICD Code: F25.0 (2) Akathisia ICD Code: G25.71 Assessment & Plan Estimated LOS: days patient does not appear to be showing signs of akathisia at this time. There is some depression of mild psychotic flavor. Please see the multiple medication adjustments above. Justification for Cont. Inpt. See the multiple medication adjustments above the need monitoring of an inpatient stay Discharge Planning To be determined Request HC Surrog/Guard Advoc?: No Moustapha Guaman MD Feb 13, 2017 13:21
[2017-02-13] MEDS ORDERED: PILL SPLITTER OTHER PRN (14:15)
[2017-02-13] MEDS: ARIPiprazole 5 MG TAB PO SCH ×2 (14:21→21:40)
[2017-02-13] MEDS: SERTRALINE HCL 50 MG TAB PO SCH (14:21)
--- NOTE | 2017-02-13 14:44 | PD.TTN ---
Present for Treatment Team Treatment Team Staff: Provider (Dr. Guaman), Nurse (Mane), Psych Therapist (Joana) Patient Problems 1. Discharge planning 2. Medication compliance 3. Knowledge deficit 4. Lack of coping skills Progress Toward Goals Provider Input: Patient has a new medication regiment, taking him off all the medications and starting patient off on Zoloft and Abilify. Nurse Input: Patient is new on to the unit and has been compliant with medications. Patient is cooperative and calm. Patient has no behavioral issues. Psych Therapist Input: Patient present with a low affect but is calm. patient notes that he has finacial and school stressors also noting that he had been hallucinating and hearing voices. Patient is compliant with starting new medications and his goal is to become "stable" Joana Patricia [facility] Feb 13, 2017 14:44
[2017-02-13 15:42] VITALS: BP 111/67; PULSE 59; RESP 18; TEMP 98.6; O2SAT 99
[2017-02-13 18:00] VITALS: BP 111/67; PULSE 59; RESP 18; TEMP 98.6; O2SAT 99
[2017-02-13 20:30] VITALS: BP 119/66; PULSE 64
[2017-02-13] MEDS: LORazepam 1 MG TAB PO PRN (22:57)
[2017-02-14 05:57] VITALS: BP 119/74; PULSE 61; RESP 18; TEMP 97.9; O2SAT 98
[2017-02-14] MEDS: ARIPiprazole 5 MG TAB PO SCH ×2 (09:31→21:28)
[2017-02-14] MEDS: SERTRALINE HCL 50 MG TAB PO SCH (09:31)
[2017-02-14] MEDS: PROPRANOLOL HCL 10 MG TAB PO SCH ×2 (09:32→21:28)
[2017-02-14] MEDS: ACETAMINOPHEN 325 MG TAB PO PRN ×2 (09:33→17:57)
--- NOTE | 2017-02-14 14:53 | HHI.PYPN ---
Subjective Remarks Patient seen in [place] with nurse Shadia, chart review, patient compliant medications. States she slept better last night now denies suicidality, denies voices, feeling better. Feels like he would be able tolerate discharge tomorrow with return to school. For now continue treatment Review of Systems Except as stated in HPI: all other systems reviewed are Neg Objective Alert: Yes [place]: Person, Place, Date, Situation Mood: Anxious Affect: Other (shy) Memory Intact: Immediate (grossly intact) Hallucinations: Auditory (denies) Delusions: No Delusion Type: Other (none elicited) Suicidal: Intent (denies), Plan (denies), Ideation (denies) Homicidal: Ideation (denies) Insight/Judgment Poor Vitals/IOs Vital Signs Date Time Temp Pulse Resp B/P Pulse Ox O2 Delivery O2 Flow Rate FiO2 02/14/17 05:57 97.9 61 18 119/74 98 Assessment & Plan Problem List: (1) Schizoaffective disorder, bipolar type ICD Code: F25.0 (2) Akathisia ICD Code: G25.71 Assessment & Plan Estimated LOS: days patient slept better last night his affect is improved with better eye contact, denies suicidality denies voices. Has no complaints about medication at this time. Consider discharge tomorrow Justification for Cont. Inpt. At this time patient may decompensate if not placed in an appropriate level of care Discharge Planning To be determined Request HC Surrog/Guard Advoc?: No Moustapha Guaman MD Feb 14, 2017 14:53
[2017-02-14 16:00] VITALS: BP 120/80; PULSE 58; RESP 18; TEMP 98.4; O2SAT 97
[2017-02-14 18:00] VITALS: BP 120/80; PULSE 58; RESP 18; TEMP 98.4; O2SAT 97
[2017-02-14] MEDS: LORazepam 1 MG TAB PO PRN (21:28)
[2017-02-15] MEDS: ACETAMINOPHEN 325 MG TAB PO PRN ×2 (03:02→09:06)
[2017-02-15 06:00] VITALS: BP 98/56; PULSE 62; RESP 18; TEMP 97.9; O2SAT 97
[2017-02-15] MEDS: PROPRANOLOL HCL 10 MG TAB PO SCH (09:00)
[2017-02-15] MEDS: ARIPiprazole 5 MG TAB PO SCH (09:01)
[2017-02-15] MEDS: SERTRALINE HCL 50 MG TAB PO SCH (09:01)
[2017-02-15] MEDS ORDERED: ARIP1TAB11 PO (10:40)
[2017-02-15] MEDS ORDERED: PROP10TA6 PO (10:40)
[2017-02-15] MEDS ORDERED: ZOLO25TA PO (10:40)
--- NOTE | 2017-02-15 10:45 | HHI.DS ---
Psychiatry Discharge Summary Inpatient Psychiatric care?: Yes Advance Directive: No Reason Not Provided: educated Mental Health AdvanceDirective: No Health Care Proxy: No Admission Admission Date Feb 10, 2017 at 16:52 Admission Diagnosis: (1) Schizoaffective disorder, bipolar type ICD Code: F25.0 Brief History The patient is a 36-year-old man, domiciled alone in [place], chiropractor student, single, with extensive psychiatric history of schizoaffective disorder, multiple psychiatric hospitalizations, known by this service, last hospitalization was here at [facility] in June 2016 under the care of Dr. Pinzon, but he was seen in the ER by Dr. Michel in January 12, documentation were reviewed, patient also have multiple suicidal attempts, active outpatient care with Dr. Post, he is on Latuda 40 mg, Seroquel 200 mg, clonazepam 1 mg at bedtime, who came to the ER with complaints of worsening anxiety over the past 3 months. As per ER notes Patient tells me that he's been having daily panic attacks lasting about 3 hours and they're interfering with his life. Patient states that he feels a visible force in his home that is pulling him around his apartment additionally he reports that he hears his own voice. He tells me at times when he is overwhelmed with anxiety and experiences this pulling force, it feels as though it would leave him towards the balcony to jump. In attempts to prevent this, patient has been using chairs to block his balcony door. He does follow with Dr. Post on an outpatient basis and was recently prescribed Klonopin, which does not seem to be helping. Additionally patient reports a 45 pound weight loss in the past 3 months. I reviewed the records and in June 2016, his weight was recorded at 93.2 kg, now it is 80 kg. Patient has visited an urgent care and seems to be following with that provider as he recently had labs done. I have reviewed them in the computer and he does not have any gross or for abnormalities. On psychiatric evaluation today patient is calm, cooperative, very pleasant. Patient explains that he has been dealing with increased anxiety, but he doesn' t know how to describe it. He says that he has been functional and doing okay at school. He has been taking his medication as prescribed and going to outpatient psychiatric visit. He has been enjoying life, sleeping okay, with good level of energy, but having some difficulty with appetite, weight loss and he says that he is unable to stay still. He says that when he is in his apartment he needs to be walking and he has intrusive thoughts of going to the balcony and jumping. He had to put a chair behind his back on his door " because I am afraid that this thoughts can become a reality". He denies depression, he denies suicidal ideation, he denies homicidal ideation, he denies visual and auditory hallucinations. During this evaluation, no racing thoughts, no loosening of associations, no pressured speech, no paranoia, no agitation, no aggressive behavior, are present. Patient is fully oriented 3, he denies the use of alcohol and drugs. Tobacco Use In Past 30 Days: No Tobacco Past 30 Days Alcohol Use: Never Hospital Course Patient's hospital course was uneventful, he showed no behavioral problems, was compliant with the milieu the staff. He also through compliance with his medication. His sleep improved, the suicidality resolved he denies suicidality homicidality voices or visions. You showing some good improvement in his processing of the stressors also. Is excited today about being discharged with follow-up with Dr. Post this afternoon. Return to classes tomorrow. Thus patient discharged today Rx 1 month. Patient take those prescriptions with him to his appointment today at 3:[address] Bhatia Results Blood Pressure 98 / 56 Vital Signs Date Time Temp Pulse Resp B/P Pulse Ox O2 Delivery O2 Flow Rate FiO2 02/15/17 06:00 97.9 62 18 98/56 97 Urine toxicology negative Summary of Procedures None done Pending results at discharge: No Medications # of Antipsychotic meds at D/C: 1 Approp Antipsych med options 1 - Minimum of three failed multiple trials of monotherapy. 2 - Documented plan to taper to monotherapy due to previous use of multiple meds OR cross-taper in progress at D/C. 3 - Documentation of augmentation of Clozapine. 4 - Justification other than those listed in allowable values 1-3, document here : Discharge Discharge Date: Feb 15, 2017 Discharge Diagnosis: (1) Schizoaffective disorder, bipolar type Diagnosis: Principal ICD Code: F25.0 Mental Status Exam at Disch Alert oriented white male calm cooperative. He is normoactive. Mood is euthymic with good range intensity of his affect. Speech rate and rhythm within normal limits though no formal thought disorders. There are no auditory or visual hallucinations. No delusions. Insight and judgment is fair cognition grossly intact Pt Condition on Discharge: Stable Discharge Disposition: Discharge Home Discharge Instructions Diet Instructions: As Tolerated, No Restrictions Activities you can perform: Regular-No Restrictions Scheduled Appointment: follow-up Dr. Post 3:40 PM today Discharge Time > 30 minutes Discharge/Advance Care Plan Health Problems: (1) Schizoaffective disorder, bipolar type (2) Akathisia Goals to promote your health * To prevent worsening of your condition and complications * To maintain your health at the optimal level Directions to meet your goals Take your medications as prescribed Follow your dietary instruction Follow activity as directed Keep your appointments as scheduled Take your immunizations and boosters as scheduled If your symptoms worsen call your PCP, if no PCP go to Urgent Care Center or Emergency Room For 13/02 questions related to your inpatient stay or results of tests pending at discharge, please contact Dr. Moustapha Guaman at Smoking is Dangerous to Your Health. Avoid second hand smoking Moustapha Guaman MD Feb 15, 2017 10:45
== END 2017-02-15 14:55 | disposition home or self-care (01) | DRG 885 ==
LOC: NEPD 11:51 → NEDA 16:52 → H260 17:33
PROVIDERS: ADMIT Psychiatry & Neurology Psychiatry; ATTEND Psychiatry & Neurology Psychiatry
DX: F25.0 Schizoaffective disorder, bipolar type (principal); J44.9 Chronic obstructive pulmonary disease, unspecified; F41.0 Panic disorder [episodic paroxysmal anxiety]; F43.10 Post-traumatic stress disorder, unspecified; F41.1 Generalized anxiety disorder; Z79.899 Other long term (current) drug therapy
CPT/HCPCS: 80053; 80307; 85025